=== PATIENT | male | born 1970 | race African-American/Black ===

== ENCOUNTER 2021-05-30 11:12 | Emergency (ER) | payer OTHER ==
[2021-05-30] MEDS ORDERED: KETOROLAC TROMETHAMINE 30 MG/1 ML VIAL IM ONE (11:44)
[2021-05-30] MEDS ORDERED: KETOROLAC TROMETHAMINE 30 MG/1 ML VIAL ONE (11:47)
[2021-05-30 11:50] VITALS: BP 123/75; PULSE 75; TEMP 98.5; BMI 34.9
== END 2021-05-30 12:31 | disposition home or self-care (01) ==
LOC: JER 11:12
PROC: 3E0233Z Introduction of Anti-inflammatory into Muscle, Percutaneous Approach (ICD-10-PCS; principal; 2021-05-30)
DX: S50.902A Unspecified superficial injury of left elbow, initial encounter (principal); W22.8XXA Striking against or struck by other objects, initial encounter
CPT/HCPCS: 73070-TC-LT-FY; 99284-25

== ENCOUNTER 2021-10-18 11:40 | Emergency (ER) | payer OTHER | END 2021-10-18 11:56 | disposition home or self-care (01) | LOC: JVIRT 11:40 | DX: Z20.822 Contact with and (suspected) exposure to COVID-19 (principal) | CPT/HCPCS: C9803; Q3014-GT; U0003; U0005 ==